=== PATIENT | male | born 1965 | race Caucasian/White ===

== ENCOUNTER 2017-08-01 22:35 | Emergency (ER) | payer BC ==
[~2017-08-01] VITALS: Ht 177.8 cm; Wt 91.4 kg
[2017-08-01 22:36] VITALS: TEMP 36.3; Ht 177.8 cm; Wt 91.4 kg
[2017-08-01] MEDS ORDERED: OXYCODONE IR HOME PACK PO STA (22:48)
[2017-08-01] MEDS ORDERED: OXYCODONE HCL IR 5 MG TAB (IMMEDIATE RELEASE) PO STA (22:48)
[2017-08-01] MEDS ORDERED: XYLOCAINE 1%/SOD BICARB 20 ML VIAL INFIL STA (22:48)
[2017-08-01] MEDS ORDERED: AMOX500C3 PO (22:54)
--- NOTE | 2017-08-01 23:32 | EMERGENCY ROOM VISIT NOTE ---
ED Visit Note First contact with patient: 22:40 CHIEF COMPLAINT: "Dental Pain" HISTORY OF PRESENT ILLNESS: This 52 year old male patient presented to the emergency department via private vehicle with a progressive toothache for past 2 weeks. The patient believes it is coming from his left upper dentition, #14. The pain is now steady and severe and radiates to the face. The patient his a dentist appointment set up Thursday. They rate their pain a 9/10 and the ibuprofen and Tylenol they have been taking has not relieved the pain. Denies facial swelling or fever. The patient denies any discharge from the mouth. REVIEW OF SYSTEMS: A 6 system review of systems was completed with positives and pertinent negatives listed in the HPI. ALLERGIES: Sulfa MEDICATIONS: As noted below PMH: No pertinent. SOCIAL HISTORY: Patient is visiting the area for the [place]. PHYSICAL EXAM: Vitals are noted on the nurse's note and reviewed by myself. Vital signs stable. Temperature 36.3C orally. He has no signs of hypothermia. GENERAL: 52-year-old male, in no acute distress, nondiaphoretic, well-developed well-nourished. Mouth: The left upper tooth is unremarkable for emergent process, without any discharge or signs of an abscess. The remainder of the pharynx and tonsils are without erythema, edema, or exudate. The airway is patent. There is no facial swelling, cervical or submandibular lymphadenopathy. The patient appears uncomfortable and in pain. The patient has overall fair dental hygiene. EARS: External auditory canals clear, tympanic membranes pearly peng without erythema or effusion bilaterally. ED COURSE: Patient was seen and evaluated as above. He presents to us today with left upper dental pain. He has a dentist which he notes he is going to see or at least speak with on the phone on Thursday. There are no signs of meningitis or encephalitis on exam. No evidence of Trevor angina. No evidence of abscess. I suspect she either has a cracked tooth, or has a very irritated nerve within this tooth. I offered him anesthetization of the tooth, and he consented. 1 mL of 1% buffered lidocaine was instilled into the gum just superior to the location of the gumline. 2 other areas were anesthetized at the same location. He is reevaluated and was feeling somewhat better. He was given 5 mg of OxyIR. He was also given dental wax. He is to follow-up with his dentist. He appears stable for discharge. Prescription was given for the patient to fill any local pharmacy of his choice. 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 Again there are no signs of infection. His BP is elevated, I suspect secondary to pain. He was educated upon worrisome symptoms which to return, had questions answered prior to discharge, and was discharged home in good condition. In the evaluation and treatment of this patient, the following differential diagnoses were considered: Periapical Abscess, Osteonecrosis of the Jaw, Dental Fracture, Dental Caries, Trevor's Angina, Vincent's Angina, Facial Cellulitis. DIAGNOSIS: Odontalgia Current/Historical Medications Scheduled Amoxicillin (Amoxil), 500 MG PO TID Scheduled PRN Oxycodone Ir (Roxicodone Ir), 1-2 TAB PO Q4H PRN for Pain Allergies Coded Allergies: Sulfa Antibiotics (Verified Allergy, Intermediate, "HIGH FEVER", 08/01/17) Vital Signs Date Time Temp Pulse Resp B/P (MAP) Pulse Ox O2 Delivery O2 Flow Rate FiO2 08/01/17 22:36 36.3 84 16 174/112 98 Room Air Medications Administered Medications (Trade) Dose Ordered Sig/Bibi Route Start Time Stop Time Status Last Admin Dose Admin Oxycodone HCl (Roxicodone Immediate Rel Tab) 5 mg NOW STAT PO 08/01/17 22:48 08/01/17 22:50 DC 08/01/17 22:56 5 MG Oxycodone HCl (Roxicodone Immediate Rel 5MG Home Pack) 1 homepack UD STAT PO 08/01/17 22:48 08/01/17 22:50 DC 08/01/17 23:46 1 HOMEPACK Departure Information Impression Primary Impression: Odontalgia Dispostion Home / Self-Care Condition GOOD Prescriptions Oxycodone Ir (Roxicodone Ir) 5 Mg Tab 1-2 TAB PO Q4H Y for Pain, #20 TAB For Initial Treatment Prov: Agus Song, TARYN 08/01/17 Referrals No Doctor, Assigned (PCP) Patient Instructions My [facility] Additional Instructions You have been treated in the Emergency Department for Dental Pain. You have received pain medicine in the emergency department which impairs your ability to operate a vehicle. It is illegal for you to drive after receiving these medicines. You have been prescribed Oxy IR to be used for pain control. This is a narcotic medication. You cannot drive or consume alcohol while on this medicine. This medicine should only be used for pain that cannot be controlled with over-the- counter pain medicines. Please continue your antibiotics. For pain control, you can use the following [id number] medicines: - Regular strength (325mg/tab) Tylenol (acetaminophen) 2 tabs every 4-6 hours as needed. Do not exceed 12 tablets in a 24 hour period. Avoid taking more than 3 grams (3000 mg) of Tylenol per day. This includes any other sources of acetaminophen you may take on a regular basis. - Regular strength (200 mg/tab) Advil (ibuprofen) 1-2 tabs every 4-6 hours as needed. Do not exceed a dose of 3200 mg per day. Refrain from smoking cigarettes or using chewing tobacco until you have been evaluated by your dentist. Keeping beverages lukewarm and consuming soft foods can decrease your pain. Warm compresses over the affected area may offer some relief. You MUST seek evaluation of your dental pain by a dentist following your visit to the Emergency Department. The Emergency Department is not capable of treating dental issues long-term. You should call your dentist as soon as possible to make an appointment for evaluation of your dental pain. Return to the emergency department if you develop the following symptoms despite treatment course outlined above: fever, intractable pain, increased redness, swelling, or purulent discharge. Please return with any new/concerning symptoms.
[2017-08-01] MEDS ORDERED: OXYC1TAB3 PO (23:36)
[2017-08-01 23:47] VITALS: BP 148/99; PULSE 69; O2SAT 98
== END 2017-08-01 23:49 | disposition home or self-care (01) ==
LOC: C.EDB 22:36 → EDBD 22:36 → C.EDC 23:49
DX: K08.89 Other specified disorders of teeth and supporting structures (principal)